=== PATIENT | female | born 1955 | race Caucasian/White ===

== ENCOUNTER → 2017-10-29 | Outpatient (CLI) | payer BC ==
[2017-10-29 15:14] LABS: HCT 38.2 % (34.0-46.0); HGB 12.6 gm/dL (11.4-16.0); MCH 30.6 pg (25.0-35.0); MCHC 32.9 g/dL (31.0-37.0); Mean Platelet Volume 6.6; Platelet Count 245 k/uL (150-450); RBC 4.11 m/uL (3.80-5.40); RDW 13.3 % (11.5-15.5); WBC 5.4 k/uL (3.8-10.6)
[2017-10-29 18:16] LABS: Erythrocyte Sedimentation Rate 12 mm/hr (0-20)
[2017-10-30 02:47] LABS: Protein, Total 6.4 g/dL (6.2-8.2)
[2017-10-30 14:16] LABS: Albumin 3.99 g/dL (3.80-4.90); Gamma Globulin 0.79 g/dL (0.70-1.50)
== END | disposition home or self-care (01) ==
LOC: LABWHC1 14:33
PROVIDERS: ATTEND Orthopaedic Surgery
DX: M25.552 Pain in left hip (principal)
CPT/HCPCS: 36415; 84165; 85027; 85652; 86140

== ENCOUNTER → 2019-10-09 | Outpatient (CLI) | payer MEDICARE ==
[2019-10-09 12:51] LABS: Basophils # (A) 0.1 k/uL (0-0.2); Basophils % (A) 1 %; Eosinophils # (A) 0.1 k/uL (0-0.7); Eosinophils % (A) 3 %; HCT 40.4 % (34.0-46.0); HGB 12.8 gm/dL (11.4-16.0); Lymphocytes # (A) 1.6 k/uL (1.0-4.8); Lymphocytes % (A) 32 %; MCH 30.6 pg (25.0-35.0); MCHC 31.7 g/dL (31.0-37.0); MCV 96.3 fL (80.0-100.0); Mean Platelet Volume 7.4; Monocytes # (A) 0.3 k/uL (0-1.0); Monocytes % (A) 6 %; Neutrophils # (A) 2.8 k/uL (1.3-7.7); Neutrophils % (A) 56 %; Platelet Count 242 k/uL (150-450)
[2019-10-09 12:58] LABS: Appearance,Urine Clear (Clear); Bilirubin,Urine Negative (Negative); Blood,Urine Negative (Negative); Color,Urine Colorless; Glucose,Urine (UA) Negative (Negative); Ketones,Urine Negative (Negative); Leukocyte Esterase,Urine Negative (Negative); Nitrite,Urine Negative (Negative); Protein,Urine Negative (Negative); Specific Gravity,Urine 1.004 (1.001-1.035); Urobilinogen,Urine <2.0 mg/dL (<2.0)
[2019-10-09 13:01] LABS: African American GFR (CKD) >90 (>60 ml/min/1.73 sqM); Anion Gap 5 mmol/L; Blood Urea Nitrogen 14 mg/dL (7-17); Calcium 9.7 mg/dL (8.4-10.2); Carbon Dioxide 30 mmol/L (22-30); Chloride 103 mmol/L (98-107); Glucose 99 mg/dL (74-99); Non-African American GFR(CKD) >90 (>60 ml/min/1.73 sqM); Potassium 4.4 mmol/L (3.5-5.1); Sodium 138 mmol/L (137-145)
[2019-10-09 13:17] LABS: INR 0.9 (<1.2); Prothrombin Time 9.7 sec (9.0-12.0)
--- NOTE | 2019-10-09 13:19 | XR ---
EXAMINATION TYPE: XR chest 2V DATE OF EXAM: 10/09/2019 COMPARISON: None HISTORY: 64-year-old female Z01.818, preop for back surgery. TECHNIQUE: Frontal and lateral views FINDINGS: The cardiomediastinal silhouette, aorta, and pulmonary vasculature are within normal limits. Lungs an d pleural spaces are clear. Moderate degenerative disc disease midthoracic spine. IMPRESSION: No acute cardiopulmonary process.
== END | disposition home or self-care (01) ==
LOC: LABPAT 11:58
PROVIDERS: ATTEND Orthopaedic Surgery Orthopaedic Surgery of the Spine
DX: Z01.818 Encounter for other preprocedural examination (principal); M50.20 Other cervical disc displacement, unspecified cervical region; Z79.01 Long term (current) use of anticoagulants
CPT/HCPCS: 36415; 71046; 80048; 81003; 85025; 85610; 85730; 93005

== ENCOUNTER 2019-10-15 11:47 | Day surgery (SDC) | payer BC, MEDICARE ==
[2019-10-10 09:46] VITALS: BMI 25.0
[~2019-10-15 11:47] MED LIST: DEXAMETHASONE SOD PHOSPHATE 10 MG/ML 1 ML VIAL IV ONE; HYDROmorphone 0.5 MG/0.5 ML SYRINGE IVP PRN; ONDANSETRON 4 MG/2 ML VIAL IVP ONE; ceFAZolin 1,000 MG in SODIUM CHLORIDE 0.9% IRRIGATIO 1,000 ML IRRIGATION ONE
[2019-10-15] MEDS ORDERED: ONDANSETRON 4 MG/2 ML VIAL ONE (12:09)
[2019-10-15] MEDS ORDERED: LIDOCAINE 1% (10MG/ML) FOR IV START INTRADERMA ONE (12:23)
[2019-10-15] MEDS: LACTATED RINGERS 1,000 ML IV SCH (12:23)
[2019-10-15] MEDS ORDERED: MIDAZOLAM 2 MG/2 ML VIAL ONE (14:04)
[2019-10-15] MEDS ORDERED: PROPOFOL 10 MG/ML 20 ML VIAL IV ONE (14:04)
[2019-10-15] MEDS ORDERED: LIDOCAINE 1% INJ 10MG/ML (20 ML MDV) ONE (14:04)
[2019-10-15] MEDS ORDERED: fentaNYL (PF) 50 MCG/ML 2 ML AMP ONE (14:04)
[2019-10-15] MEDS ORDERED: SUCCINYLCHOLINE CHLORIDE 100 MG/5 ML SYR IV ONE (14:04)
[2019-10-15] MEDS ORDERED: ROCURONIUM BROMIDE 10 MG/ML 5 ML VIAL IV ONE (14:04)
[2019-10-15] MEDS ORDERED: PHENYLEPHRINE-0.9% NACL SYG 1 MG/10 ML SYRINGE ONE (14:04)
[2019-10-15] MEDS ORDERED: methylPREDNISolone ACETATE 40 MG/ML 1 ML VIAL MISCELLANE ONE (14:10)
[2019-10-15] MEDS ORDERED: GELATIN SPONGE,ABSORB (LARGE) 1 EACH SPONGE TOPICAL ONE (14:10)
[2019-10-15] MEDS ORDERED: LIDOCAINE 0.5%-EPI 1:200,000 50 ML VIAL SQ ONE (14:10)
[2019-10-15] MEDS ORDERED: THROMBIN (BOVINE) 5,000 UNIT VIAL TOPICAL ONE (14:10)
[2019-10-15] MEDS ORDERED: LACTATED RINGERS 1,000 ML IV ONE (15:07)
--- NOTE | 2019-10-15 15:26 | FL ---
EXAMINATION TYPE: FL guidance operating room, XR lumbar spine 1V DATE OF EXAM: 10/15/2019 CLINICAL HISTORY: Low back pain. TECHNIQUE: Fluoroscopy. Limited one view lumbar spine. COMPARISON: None. FINDINGS: Fluoroscopic guidance was provided during lumbar laminectomy procedure performed by Dr. Pelon kennedy. A total of 3 seconds of fluoroscopic time was utilized during the procedure and single spot flu oroscopic intraoperative image is acquired. Single image recorded shows underpenetration and poor visualization of spine with penetrating needles partially visualized. IMPRESSION: As Above.
[2019-10-15] MEDS ORDERED: KETOROLAC 30 MG/ML 1 ML VIAL IVP PRN (16:22)
[2019-10-15] MEDS ORDERED: MAGNESIUM HYDROXIDE 2,400 MG/10 ML CUP PO PRN (16:22)
[2019-10-15] MEDS ORDERED: BENZOCAINE/MENTHOL LOZENG 1 EACH LOZENGE MUCOUS MEM PRN (16:22)
[2019-10-15] MEDS ORDERED: HYDROcodone/APAP 5-325MG 1 EACH TAB PO PRN (16:22)
[2019-10-15] MEDS ORDERED: ONDANSETRON 4 MG/2 ML VIAL IVP ONE ×2 (16:22→17:18)
[2019-10-15] MEDS ORDERED: HYDROmorphone 1 MG/ML 1 ML SYRINGE IVP PRN (16:22)
[2019-10-15] MEDS ORDERED: HYDROmorphone 0.5 MG/0.5 ML SYRINGE IVP PRN (16:22)
--- NOTE | 2019-10-15 16:30 | P.OP ---
Date of Procedure: 10/15/19 Preoperative Diagnosis: Herniated nucleus pulposus L3 4, stenosis L3 4 L4 5, neurogenic claudication, lower extremity radiculopathy, degenerative disc disease, facet arthrosis Postoperative Diagnosis: Same Anesthesia: GETA Pathology: none sent Condition: stable Disposition: PACU Description of Procedure: BRIEF OPERATIVE NOTE Preoperative Diagnosis: Herniated nucleus pulposus L3 4, severe spinal stenosis L3 4 L4 5, neurogenic claudication, lower extremity radiculopathy, degenerative disc disease, facet arthrosis Postoperative Diagnosis: Same Procedure: Laminectomy and decompression with wide bilateral foraminotomies L3 4 and L4 5 Discectomy for decompression L3 4 Placement of the interlaminar stabilization device, Coflex d evice at L3 4 L4 5 Surgeon: Dr. Kiser Piping Design Specialist: Reginaldo Bettencourt is present throughout the entire the case persistence during positioning, dissection, exposure, visualization, and all crucial elements of the case as well as closure. Anesthesia: General anesthesia per Dr. Dr. Mendenhall Estimated blood loss: approximately 100 mL Complications: None apparent Components implanted: Coflex interlaminar stabilization device L3 4 and L4-5, measuring 8 mm and 12 mm Disposition: To recovery room in good stable condition. OPERATIVE INDICATIONS The patient has been having issues in their lower back and lower extremities. she is having severe claudication symptoms due to her severe spinal stenosis at her lumbar spine particularly at L3 4 and L4 5. She is unable severe central and bilateral foraminal stenosis L3 4 and L4 5. She was also found have a disc herniation with extruded fragment L3 4 on the left. All of these findings correlate well with her low back and lower extremity symptoms. She is not having any benefit despite aggressive conservative care. We discussed various treatment options. The patient has been through conservative treatment. she is not having any prolonged benefit despite aggressive conservative treatment We discussed various treatment options including surgery, ranging from laminectomy alone to the possibility of decompression with stabilization as well as the decompression and fusion. We felt that the patient could benefit with decompression and interlaminar stabilization,and the patient wishes to proceed with surgery We discussed the risk, patient's alternatives and benefits of surgery including but not limited to, risk of bleeding risk of infection, risk of need for further surgery, risk of decreased, loss of motion, loss of function, nerve damage, paralysis, heart attack, blindness and . OPERATIVE SUMMARY After discussing all the risks, patient alternatives and benefits at length, the patient elected to proceed with surgical intervention, signed informed consent, and presented for their procedure. The patient was seen and examined in the preoperative holding area and the surgical site was marked. The patient was given antibiotics and brought to the operating room. The patient was sedated and intubated by anesthesia in standard fashion. The patient was positioned on to the operating room table in a prone position on the appropriate frame which was well-padded and well molded. We were careful to pad any bony prominences and pressure points. We were careful to maintain the patient's cervical spine and good neutral alignment and position throughout. The patient was prepped and draped in a normal standard fashion. An appropriate timeout and keystone protocol performed. We were able to proceed with the surgery. Fluoroscopy was utilized to establish the appropriate level. The local wound area was infiltrated with local anesthetic. An incision was made at the midline longitudinally over the appropriate levels at L3 4 and L4 5. Dissection was taken down subcutaneously to the level of the fascia which was split midline. Dissection was taken over the lamina. Intraoperative fluoroscopy was taken which showed a marker at the appropriate level at L3 4 . With the appropriate level positively confirmed, we were able to proceed with laminectomy. I started at L3 4 and address the discectomy at L3 4 as well. The wound was copiously irrigated and suctioned dry as had been done periodically throughout the case. I performed a laminectomy with a combination of curettes and a high-speed bur and Kerrison rongeurs. A small medial facetectomy was performed again further access. No was made of severe central and bilateral foraminal stenosis which was remedied with the decompression and laminectomy with partial medial facetectomy. A partial foraminotomy was also performed. Portions of the ligamentum flavum were taken down to expose the dura and traversing nerve root. There is severe thickening of the ligamentum flavum and significant facet hypertrophy with osteophytes causing severe central and bilateral foraminal stenosis. This was remedied with the decompression.at L3 4 there is note of a disc herniation with extruded fragment. As able padded tape the area and perform an annulotomy. There are number of small fragments of disc that I was able to remove which gave further decompression of the area. There is no evidence of dural tear or leak. Good hemostasis maintained. The wound was copiously irrigated and suctioned dry. Good decompression was noted. This was done first at L34 and L4 5. I was able to measure the appropriate size interlaminar stabilizing device. I was able get good alignment at the intralaminar spaces. I was able to trial with the appropriate size device and get gentle distraction at each level. I chose he is appropriate size interlaminar stabilizer. The Coflex device was positioned and malleted in place and good alignment good position with good fixation at each level. The construct was checked and found to be stable. There is good decompression without any evidence of dural tear or leak. There is no evidence of fracture. We were able to proceed with closure. The fascia was closed for a watertight closure. The subcuticular tissue was closed with absorbable suture. The wound was cleaned and dried and dressed with the appropriate dressing. The drapes were broken down. The patient was gently rolled back onto their hospital bed being careful to maintain their cervical spine and good neutral alignment and position. They were woken up by anesthesia, extubated, and brought to the recovery room in good stable condition. The patient will be admitted to the hospital for observation and for appropriate postoperative care, medical management and monitoring. We will continue to follow them closely about the postoperative course.
[2019-10-15] MEDS ORDERED: ASPIRIN 81 MG PO ONE (17:30)
[2019-10-15] MEDS: SODIUM CHLORIDE 0.9% 1,000 ML IV SCH (18:05)
[2019-10-15] MEDS: HYDROcodone/APAP 5-325MG 1 EACH TAB PO PRN ×2 (19:15→23:38)
[2019-10-15 20:33] VITALS: RESP 18
[2019-10-15] MEDS: GABAPENTIN 300 MG CAP PO SCH (21:13)
[2019-10-16] MEDS: LACTATED RINGERS 1,000 ML IV SCH (05:22)
[2019-10-16] MEDS: HYDROcodone/APAP 5-325MG 1 EACH TAB PO PRN (05:33)
[2019-10-16 05:41] VITALS: BP 103/61; PULSE 69; TEMP 98.1
[2019-10-16] MEDS ORDERED: PANTOPRAZOLE 40 MG TABLET PO SCH (07:30)
[2019-10-16] MEDS: SODIUM CHLORIDE 0.9% 1,000 ML IV SCH (07:43)
[2019-10-16] MEDS: GABAPENTIN 300 MG CAP PO SCH (07:54)
--- NOTE | 2019-10-16 08:59 | P.DS ---
Providers Date of admission: 10/15/19 Attending physician: Tammy Kiser Primary care physician: Stated None Hospital Course: Postoperative day #1 status post laminectomy decompression L3 4 L4 5 discectomy for decompression L3 4 and placement of interlaminar Coflex device L3 4 L4 5 for her disc herniation and severe spinal stenosis L3 4 L4 5 with neurogenic claudication and lower extremity radiculopathy The patient presented on the day of admission as per their operative note. She says she is very happy with results thus far. She says she got up and she couldn't believe how good her legs felt. She is having significant pain in her back but is controlled medication. She has been able to get up and around. She denies any nausea or vomiting. Physical Exam The incision site is clean dry and intact. There is no erythema no drainage. There is no purulence no evidence of infection. Her back is clear Abdomen soft and nontender. Chest has good excursion with deep inspiration and expiration. The patient has active and passive range of motion intact at the upper and lower extremities. There is no acute change in neurologic status. She has sustained dorsal flexion but flexion and EHL intact. Hospital Course Postoperative day #1 The patient has been making good progress postoperatively. She is very happy with how her legs feel since her surgery. Her pain in her back is controlled appropriately with medication. She has been able get around well. They have completed the prophylactic antibiotics without any signs or symptoms of infection. The patient has been able to advance their diet, and is tolerating diet adequately. The pain was initially controlled with IV medications and is now controlled appropriately with oral medications. The patient has been able to increase their mobilization. The patient has progressed appropriately. I think they are in good stable condition for discharge today. They will be sent home with appropriate prescriptions. I answered their questions to the best of my ability in a language that they can understand and they are agreeable with the plan. They will follow up as directed in approximately 2 weeks or sooner if she is having problems. Patient Condition at Discharge: Good Plan - Discharge Summary Discharge Rx Participant: Yes New Discharge Prescriptions: New Acetaminophen with Codeine [Tylenol w/codeine #3] 1 - 2 tab PO Q6H PRN #56 tab PRN Reason: Pain No Action Meloxicam 7.5 mg PO DAILY Gabapentin [Neurontin] 300 mg PO TID Pravastatin Sodium [Pravachol] 10 mg PO DAILY Pantoprazole Sodium [Protonix] 20 mg PO QAM Acyclovir 400 mg PO DAILY Methylsulfonylmethane [MSM] 1,000 mg PO DAILY Aspirin 81 mg PO Q2D Discharge Medication List Gabapentin [Neurontin] 300 mg PO TID 02/12/14 [History] Meloxicam 7.5 mg PO DAILY 02/12/14 [History] Acyclovir 400 mg PO DAILY 10/10/19 [History] Aspirin 81 mg PO Q2D 10/10/19 [History] Methylsulfonylmethane [MSM] 1,000 mg PO DAILY 10/10/19 [History] Pantoprazole Sodium [Protonix] 20 mg PO QAM 10/10/19 [History] Pravastatin Sodium [Pravachol] 10 mg PO DAILY 10/10/19 [History] Acetaminophen with Codeine [Tylenol w/codeine #3] 1 - 2 tab PO Q6H PRN #56 tab 10/16/19 [Rx] Follow up Appointment(s)/Referral(s): Tammy Kiser DO [Doctor of Osteopathic Medicine] - 2 Weeks Activity/Diet/Wound Care/Special Instructions: Keep site clean. May shower with waterproof Tegaderm intact. Do not soak in a tub. After 72 hours postoperatively, patient May remove dressing and then may shower with area uncovered. Leave Steri-Strips intact and allow them to fray off on their own. May ambulate as tolerated. Avoid heavy or rigorous activity. No repetitive bending twisting or lifting. No overhead work. Discharge Disposition: HOME SELF-CARE
[2019-10-16] MEDS ORDERED: MELOXICAM 7.5 MG TAB PO SCH (09:00)
[2019-10-16] MEDS ORDERED: PRAVASTATIN SODIUM 20 MG TAB PO SCH (09:00)
[2019-10-16] MEDS ORDERED: METHYLSULFONYLMETHANE 1000 MG PO SCH (09:00)
[2019-10-16] MEDS ORDERED: SENNOSIDES-DOCUSATE SODIUM 1 EACH TAB PO SCH (09:00)
[2019-10-16] MEDS ORDERED: ACYCLOVIR 200 MG CAP PO SCH (09:00)
[2019-10-16] MEDS ORDERED: ONDANSETRON 4 MG/2 ML VIAL IVP ONE (09:27)
[2019-10-17] MEDS ORDERED: ASPIRIN 81 MG PO SCH (09:00)
== END 2019-10-16 11:12 | disposition home or self-care (01) ==
LOC: OR 11:47 → 5NMEDONC 17:06 → OR 10-16 11:12
PROVIDERS: ATTEND Orthopaedic Surgery Orthopaedic Surgery of the Spine
DX: M51.16 Intervertebral disc disorders with radiculopathy, lumbar region (principal); M48.062 Spinal stenosis, lumbar region with neurogenic claudication; M47.26 Other spondylosis with radiculopathy, lumbar region; I25.10 Atherosclerotic heart disease of native coronary artery without angina pectoris; K21.9 Gastro-esophageal reflux disease without esophagitis; M19.90 Unspecified osteoarthritis, unspecified site; G43.909 Migraine, unspecified, not intractable, without status migrainosus; J30.9 Allergic rhinitis, unspecified; R59.0 Localized enlarged lymph nodes; Z88.1 Allergy status to other antibiotic agents; Z88.5 Allergy status to narcotic agent; Z91.011 Allergy to milk products; Z79.899 Other long term (current) drug therapy; Z90.49 Acquired absence of other specified parts of digestive tract; Z90.710 Acquired absence of both cervix and uterus; Z79.82 Long term (current) use of aspirin; Z87.891 Personal history of nicotine dependence; Z80.3 Family history of malignant neoplasm of breast; Z82.49 Family history of ischemic heart disease and other diseases of the circulatory system; Z80.0 Family history of malignant neoplasm of digestive organs; Z97.3 Presence of spectacles and contact lenses
CPT/HCPCS: 97162; 86900; 86901; 86850; 72020; 22867; 22868; C1713; J2250; J1030; J0690 ×3; J2405 ×2; J2001; J3010; J2370; J0330; J2704